=== PATIENT | male | born 1955 | race African-American/Black ===

== ENCOUNTER 2022-03-15 01:15 | Emergency (ER) | payer OTHER, MEDICAID ==
[~2022-03-15] VITALS: Ht 182.9 cm; Wt 117.9 kg
[2022-03-15 01:30] VITALS: BP 160/90
--- NOTE | 2022-03-15 01:41 | NUR ---
PT TRIAGE AND STABLE, [facility].
--- NOTE | 2022-03-15 02:20 | NUR ---
SEEN AND EXAMINED BY BARBARA
[2022-03-15] MEDS ORDERED: DEXAMETHASONE 10 MG/ML VIAL IM ONE (02:35)
--- NOTE | 2022-03-15 02:35 | NUR ---
MEDICATED PER [facility] ORDER, TOLERATED WELL.
[2022-03-15] MEDS ORDERED: PRED20TA5 PO (02:54)
[2022-03-15 03:27] VITALS: BP 162/88
--- NOTE | 2022-03-15 03:28 | NUR ---
Patient discharged with v/s stable. Written and verbal after care instructions given and explained BY DR MOROCHO. Patient alert, oriented and verbalized understanding of instructions. Ambulatory with steady gait. All questions addressed prior to discharge. ID band removed. Patient advised to follow up with PMD. Rx SENT TO PHARMACY. Patient educated on indication of medication including possible reaction and side effects. Opportunity to ask questions provided and answered.
== END 2022-03-15 03:28 | disposition home or self-care (01) ==
LOC: MED 01:15
DX: M54.6 Pain in thoracic spine (principal); M25.512 Pain in left shoulder; I10 Essential (primary) hypertension; E11.9 Type 2 diabetes mellitus without complications; Z79.4 Long term (current) use of insulin; Z79.899 Other long term (current) drug therapy
CPT/HCPCS: 96372; 99283; J1100